=== PATIENT | female | born 1990 | race Caucasian/White ===

== ENCOUNTER → 2023-11-28 12:13 | Outpatient (REF) | payer BC, SELFPAY | LOC: REG 12:13 | PROVIDERS: ATTENDING PHYSICIAN Obstetrics & Gynecology | DX: Z34.93 Encounter for supervision of normal pregnancy, unspecified, third trimester (principal) | CPT/HCPCS: 36415; 86850; 86900; 86901; J2790 ==

== ENCOUNTER → 2024-02-07 09:18 | Outpatient (REF) | payer BC, SELFPAY | LOC: PNTC 09:18 | PROVIDERS: ATTENDING PHYSICIAN Obstetrics & Gynecology | DX: O66.0 Obstructed labor due to shoulder dystocia (principal); O66.2 Obstructed labor due to unusually large fetus | CPT/HCPCS: 36415; 76816 ==

== ENCOUNTER 2024-02-18 06:55 | Inpatient (IN) | payer BC, SELFPAY ==
[2024-02-18 07:14] VITALS: BP 137/86; BMI 29.7
[2024-02-18 08:12] LABS: Hematocrit 31.4 % (37.0-47.0); Hemoglobin 10.7 g/dL (12.0-16.0); Mean Corp Hgb Conc. 34.1 g/dL (33.0-37.0); Mean Corpuscular Hgb 28.4 pg (27.0-31.0); Mean Corpuscular Volume 83.3 fL (81.0-99.0); Mean Platelet Volume 9.1 fL (7.4-10.4); Platelet Count 215 10^3/uL (130-400); Red Blood Cell Count 3.77 10^6/uL (4.20-5.40); Red Cell Dist. Width 12.1 % (11.5-14.5); White Blood Cell Count 9.3 10^3/uL (4.8-10.8)
[2024-02-18] MEDS: TYLENOL 1000 MG PO (09:10)
[2024-02-18] MEDS: BICITRA 30 ML PO (09:11)
[2024-02-18] MEDS: BENADRYL 25 MG IV (09:21)
[2024-02-18] MEDS: TORADOL 15 MG IV ×2 (16:03→21:58)
[2024-02-19] MEDS: TORADOL 15 MG IV ×2 (04:06→10:01)
[2024-02-19 06:34] LABS: Hematocrit 22.5 % (37.0-47.0); Hemoglobin 7.7 g/dL (12.0-16.0); Mean Corp Hgb Conc. 34.2 g/dL (33.0-37.0); Mean Corpuscular Volume 81.8 fL (81.0-99.0); Mean Platelet Volume 9.7 fL (7.4-10.4); Platelet Count 185 10^3/uL (130-400); Red Blood Cell Count 2.75 10^6/uL (4.20-5.40); Red Cell Dist. Width 12.3 % (11.5-14.5)
[2024-02-19] MEDS: PRENATAL PLUS 1 TABLET PO (08:13)
[2024-02-19] MEDS: SENOKOT-S 1 TABLET PO (08:13)
--- NOTE | 2024-02-19 10:27 | W.PN.ANS.POP ---
Anesthesia Post Operative
- Anesthesia Post Op Note
Vital Signs Stable-See Nursing Note: Yes
Airway Patent: Yes
Adequate Pain Control: Yes
Change in Mental Status: No
Current Postoperative Nausea & Vomiting: No
Anesthesia Complications: No
General Anesthetic Recall: No
Unplanned Admission: No
Post Op Hydration Adequate: Yes
[2024-02-19 11:38] LABS: Syphilis/T. pallidum Ab Reflex Negative (Negative)
[2024-02-19] MEDS: TYLENOL 650 MG PO (14:53)
[2024-02-19] MEDS: MOTRIN 600 MG PO ×2 (14:53→20:56)
[2024-02-19] MEDS: FEOSOL 325 MG PO (14:53)
[2024-02-19] MEDS: PERCOCET 5/325 1 TABLET PO (20:56)
[2024-02-20] MEDS: MOTRIN 600 MG PO ×2 (03:46→11:13)
[2024-02-20] MEDS: TYLENOL 650 MG PO ×2 (03:48→11:13)
[2024-02-20] MEDS: FEOSOL 325 MG PO (08:30)
[2024-02-20] MEDS: PRENATAL PLUS 1 TABLET PO (08:30)
[2024-02-20] MEDS: SENOKOT-S 1 TABLET PO (11:13)
--- NOTE | 2024-02-20 12:06 | W.DS.TRANS ---
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
-
Discharge Instructions:
Discharge Diagnosis/Procedures term , delivered; s/p primary
; anemia, asymptomatic
Instructions:
Stand-Alone Forms: LDRP Delivery
Changes to Home Medications: No
Discharge Medications:
DC Medications w/original date entered in [facility]
vits 96-ferrous fumarate 27 mg iron-folic acid 800 mcg tablet 1 ea PO DAILY Supplement 12/13/20
acetaminophen 325 mg tablet 650 mg (2 x 325 mg) PO Q4HPRN PRN mild pain #0 tabs 02/20/24
ferrous sulfate 325 mg (65 mg iron) tablet (FeroSul) 325 mg PO DAILY #0 tabs 02/20/24
ibuprofen 600 mg tablet 600 mg PO Q6HPRN PRN cramps/pain #60 tabs 02/20/24
oxycodone 5 mg tablet 5 mg PO Q4H PRN severe pain #7 tabs 02/20/24
sennosides 8.6 mg-docusate sodium 50 mg tablet (Stool Softener-Laxative) 1 tab PO DAILYPRN PRN constipation #0 tabs 02/20/24
Home Medication Changes
none
Pending Results: No
Total time spent discharging patient (in min): 30
== END 2024-02-20 13:25 | disposition home or self-care (01) | DRG 787 ==
LOC: LDRP 06:55
PROVIDERS: ADMITTING PHYSICIAN Obstetrics & Gynecology
PROC: 10D00Z1 Extraction of Products of Conception, Low, Open Approach (ICD-10-PCS; 2024-02-18)
DX: O99.284 Endocrine, nutritional and metabolic diseases complicating childbirth (principal); O98.32 Other infections with a predominantly sexual mode of transmission complicating childbirth; E28.2 Polycystic ovarian syndrome; Z3A.39 39 weeks gestation of pregnancy; Z37.0 Single live birth; A63.0 Anogenital (venereal) warts; O90.81 Anemia of the puerperium; D64.9 Anemia, unspecified; Z88.2 Allergy status to sulfonamides; Z82.49 Family history of ischemic heart disease and other diseases of the circulatory system
CPT/HCPCS: 85027; 86780; 86850; 86870; 86900; 86901; 90707

== ENCOUNTER → 2024-02-29 16:30 | Outpatient (REF) | payer BC, SELFPAY | LOC: RAD 16:30 | PROVIDERS: ATTENDING PHYSICIAN Obstetrics & Gynecology | DX: O72.2 Delayed and secondary postpartum hemorrhage (principal) | CPT/HCPCS: 76856 ==

== ENCOUNTER 2024-03-01 13:22 | Emergency (ER) | payer BC, SELFPAY ==
[2024-03-01 13:24] VITALS: BP 101/72
[2024-03-01 14:02] VITALS: BMI 26.3
--- NOTE | 2024-03-01 15:33 | ED.GENMED ---
History of Present Illness
General
Chief Complaint: DVT/Possible Blood Clot
Source: patient
Exam Limitations: none
Time Seen by Provider: 03/01/24 13:30
Nursing documentation reviewed up to this point in time: agreed with
History of Present Illness
History of Present Illness:
Patient is s/p Csection x 2 weeks. Was seen by OB yesterday for increased vaginal bleeding. Sent for US: 'Distention of endometrial canal containing echogenic mass 3.5x3.3x4.5cm. Could represent a blood clot'. She spoke with OB again today.
Vaginal bleeding has lessened but now notes left calf pain with ambulation. Sent to ED to r/o DVT. No other complaints
Past History
Past History
ED Past Medical History: None
ED Past Surgical History:
Review of Systems
Review of Systems
All Other Systems: ROS reviewed and negative except as documented in HPI and ROS
Constitutional: Reports no symptoms
EENT: Reports no symptoms
Respiratory: Reports no symptoms
Cardiac: Reports no symptoms
Musculoskeletal: Reports other (left calf pain)
Skin: Reports no symptoms
Neurological: Reports no symptoms
Psychiatric: Reports no symptoms
Phy Exam
General Physical Exam
General Presentation: well appearing and no apparent distress
General age: appears stated age
General Skin: warm and dry
General Habitus: normal
Cardiovascular Exam
Cardiovascular Exam: regular rate/rhythm and no edema
Pulmonary Exam
Pulmonary Exam: lungs clear and no respiratory distress
Musculoskeletal Exam
Musculoskeletal Exam: neuro vasc intact and other (left calf pain. No redness or swelliing.)
Skin Exam
Skin Exam: normal color, warm/dry and no rash
Psychiatric Exam
Psychiatric Exam: normal mood/affect
Course
Orders/Labs/Results
Orders:
Orders
03/01/24 14:04
US Periph Venous LOWER Ext LT Urgent
Comment:
Reason For Exam: CALF PAIN
Vital Signs
Initial and Last Documented VS:
Initial Vital Signs
Temp Pulse Resp BP Pulse Ox
98.3 F 98 16 101/72 100
03/01/24 13:24 03/01/24 13:24 03/01/24 13:24 03/01/24 13:24 03/01/24 13:24
Last Documented Vital Signs
Temp Pulse Resp BP Pulse Ox
98.3 F 98 16 101/72 98
03/01/24 13:24 03/01/24 13:24 03/01/24 13:24 03/01/24 13:24 03/01/24 14:02
*Radiology
Radiology exam reviewed: radiology read reviewed
*Pulse Oximetry
Patient hypoxic: no
*Critical Care Note
Total Time (30-74mins, 75-104mins- exclusive of procedures): Not Applicable
ED Attending Note
-
Portions of this chart may have been created with voice recognition software.� Occasional wrong word or��sound alike� substitutions may have occurred due to the inherent limitations of voice recognition software.
Discharge Plan
Departure
Patient Disposition: Home (Routine Discharge)
Date of Disposition: 03/01/24
Time of Disposition: 15:24
Patient with high blood pressure during this ER visit?: No
Condition: Good
Covid-19: Not Applicable
Discharge Problem:
Calf pain
Instructions: Musculoskeletal Pain
Prescriptions:
No Action
[id number] fum-folic 1 EACH tablet
1 ea PO DAILY
ferrous sulfate [FeroSul] 325 mg (65 mg iron) Tablet
325 mg PO DAILY Qty: 0 0RF
ibuprofen 600 mg Tablet
600 mg PO Q6HPRN PRN (Reason: cramps/pain) Qty: 60 0RF
acetaminophen 325 mg Tablet
650 mg PO Q4HPRN PRN (Reason: mild pain) Qty: 0 0RF
sennosides-docusate sodium [Stool Softener-Laxative] 8.6-50 mg Tablet
1 tab PO DAILYPRN PRN (Reason: constipation) Qty: 0 0RF
Referrals:
NONE,* [Family Provider] -
Activity Restrictions/Additional Instructions:
Follow up with your family doctor.
Interventions
Interventions:
*Risk Screen - Suicide Last Done: 03/01/24 13:24
*General Assessment Last Done: 03/01/24 13:24
*Neglect/Abuse Screening Last Done: 03/01/24 13:24
ED- Fall Risk Assessment Last Done: 03/01/24 14:02
*ED COVID-19 Vaccine History Last Done: 03/01/24 14:02
ED- Cardiac Assessment Last Done: 03/01/24 14:02
ED- Pulmonary Assessment Last Done: 03/01/24 14:02
ED-Peripheral Vascular Assessment Last Done: 03/01/24 14:02
ED-Skin Assessment Last Done: 03/01/24 14:02
Discharge Date and Time
Print Language: QATARI
== END 2024-03-01 15:39 | disposition home or self-care (01) ==
LOC: EMR 13:22
PROVIDERS: EMERGENCY PHYSICIAN Emergency Medicine
DX: O90.89 Other complications of the puerperium, not elsewhere classified (principal); M79.662 Pain in left lower leg; O72.1 Other immediate postpartum hemorrhage; Z88.2 Allergy status to sulfonamides
CPT/HCPCS: 99284; 93971